=== PATIENT | female | born 1975 | race Caucasian/White ===

== ENCOUNTER 2021-04-23 10:44 | Emergency (ER) | payer SELFPAY ==
[~2021-04-23] VITALS: Ht 175.3 cm; Wt 84.1 kg
[2021-04-23 10:53] VITALS: TEMP 98.4
[2021-04-23] MEDS ORDERED: NEURONTIN600 MG/TAB PO (11:17)
[2021-04-23] MEDS ORDERED: FIORICET 325 MG1 TA1 PO (11:17)
[2021-04-23 11:42] VITALS: BP 110/78; PULSE 98
== END 2021-04-23 11:42 | disposition home or self-care (01) ==
LOC: COL.ER 10:44
DX: G43.909 Migraine, unspecified, not intractable, without status migrainosus (principal); F17.210 Nicotine dependence, cigarettes, uncomplicated
CPT/HCPCS: J0780; J1885

== ENCOUNTER 2021-05-11 08:17 | Emergency (ER) | payer SELFPAY ==
[~2021-05-11] VITALS: Ht 175.3 cm; Wt 86.4 kg
[~2021-05-11 08:17] MED LIST: FIORICET 325 MG1 TA1 PO; NEURONTIN600 MG/TAB PO
[2021-05-11 08:24] VITALS: BP 128/70; TEMP 97.1
[2021-05-11] MEDS ORDERED: NEURONTIN600 MG/TAB PO (09:16)
[2021-05-11 09:36] VITALS: PULSE 86
== END 2021-05-11 09:36 | disposition home or self-care (01) ==
LOC: COL.ER 08:17
DX: S80.02XA Contusion of left knee, initial encounter (principal); G43.909 Migraine, unspecified, not intractable, without status migrainosus; M54.9 Dorsalgia, unspecified; G89.29 Other chronic pain; Z79.899 Other long term (current) drug therapy; X50.1XXA Overexertion from prolonged static or awkward postures, initial encounter

== ENCOUNTER 2021-08-01 08:08 | Emergency (ER) | payer BC ==
[~2021-08-01] VITALS: Ht 175.3 cm; Wt 90.9 kg
[2021-08-01 08:15] VITALS: TEMP 97.8
[2021-08-01] MEDS ORDERED: FIORICET 325 MG1 TA1 PO (08:42)
[2021-08-01] MEDS ORDERED: NEURONTIN600 MG/TAB PO (08:42)
[2021-08-01 08:49] VITALS: BP 103/71; PULSE 72
[2021-10-12] MEDS ORDERED: NYSTATIN OR100 MU/ML PO (22:01)
== END 2021-08-01 08:51 | disposition home or self-care (01) ==
LOC: COL.ER 08:08
DX: M54.9 Dorsalgia, unspecified (principal); G89.29 Other chronic pain; F17.200 Nicotine dependence, unspecified, uncomplicated; Z90.710 Acquired absence of both cervix and uterus; Z79.899 Other long term (current) drug therapy

== ENCOUNTER 2021-08-10 12:49 | Emergency (ER) | payer BC ==
[~2021-08-10] VITALS: Ht 175.3 cm; Wt 86.4 kg
[2021-08-10 13:15] VITALS: BP 126/77; TEMP 98.3
[2021-08-10] MEDS ORDERED: FIORICET 325 MG1 TA1 PO ×3 (13:39→14:45)
[2021-08-10] MEDS ORDERED: LYRICA200 MG PO ×3 (13:39→14:45)
[2021-08-10 14:06] VITALS: PULSE 91
[2021-10-12] MEDS ORDERED: NYSTATIN OR100 MU/ML PO (22:01)
== END 2021-08-10 14:05 | disposition home or self-care (01) ==
LOC: COL.ER 12:49
DX: M54.16 Radiculopathy, lumbar region (principal); G43.909 Migraine, unspecified, not intractable, without status migrainosus; Z90.710 Acquired absence of both cervix and uterus; Z79.899 Other long term (current) drug therapy

== ENCOUNTER 2021-09-14 10:52 | Emergency (ER) | payer SELFPAY ==
[~2021-09-14] VITALS: Ht 175.3 cm; Wt 86.4 kg
[~2021-09-14 10:52] MED LIST changes: +LYRICA200 MG PO
[2021-09-14 11:18] VITALS: TEMP 97.5
[2021-09-14] MEDS ORDERED: LYRICA200 MG PO (12:06)
[2021-09-14] MEDS ORDERED: FIORICET 325 MG1 TA1 PO (12:06)
--- NOTE | 2021-09-14 12:29 | NUR ---
[facility] consulted for medication voucher or assistance. [facility]A staffed with nurse about patient and Dr. Patient is reported to need assistance obtaining medications for migranes and neuro concerns. Patient reports that her lost insurance for the family and cannot afford medications and does not have primary care. [facility]URA notes that patient visted the ED on 08/01/2021 for medications, 08/10/2021 for medicationa for same issue, and again today for medications. Educated patient on establishing care and using other community supports. SW provide client with packet for [employer] insurance, [facility] Resource Guide, Good RX Card, and obtain release to make a referral for PCP. Educated patient on [facility]. Placed Release on Chart along with referral for PCP for medications. CATA.
[2021-09-14 12:43] VITALS: BP 122/74; PULSE 78
[2021-10-12] MEDS ORDERED: NYSTATIN OR100 MU/ML PO (22:01)
== END 2021-09-14 12:50 | disposition home or self-care (01) ==
LOC: COL.ER 10:52
DX: M54.2 Cervicalgia (principal); R51.9 Headache, unspecified; G43.909 Migraine, unspecified, not intractable, without status migrainosus; F17.210 Nicotine dependence, cigarettes, uncomplicated; Z79.899 Other long term (current) drug therapy
CPT/HCPCS: J0780; J1885

== ENCOUNTER 2021-09-28 08:26 | Emergency (ER) | payer SELFPAY ==
[~2021-09-28] VITALS: Ht 175.3 cm; Wt 86.4 kg
[2021-09-28 08:33] VITALS: BP 133/84; PULSE 98
[2021-09-28] MEDS ORDERED: LYRICA200 MG PO ×2 (08:41)
[2021-10-12] MEDS ORDERED: NYSTATIN OR100 MU/ML PO (22:01)
== END 2021-09-28 09:24 | disposition home or self-care (01) ==
LOC: COL.ER 08:26
DX: M54.50 Low back pain, unspecified (principal); G89.29 Other chronic pain; Z87.39 Personal history of other diseases of the musculoskeletal system and connective tissue
CPT/HCPCS: J1885

== ENCOUNTER 2021-10-09 11:39 | Emergency (ER) | payer SELFPAY ==
[~2021-10-09] VITALS: Ht 175.3 cm; Wt 86.4 kg
[2021-10-09] MEDS ORDERED: FIORICET 325 MG1 TA1 PO (13:09)
[2021-10-09] MEDS ORDERED: AMOXICILLIN 8751 TAB PO (13:09)
[2021-10-09] MEDS ORDERED: FLEXERIL 1010 MG/TAB PO (13:09)
[2021-10-09 13:25] VITALS: BP 113/61; PULSE 88; TEMP 98.1
[2021-10-12] MEDS ORDERED: NYSTATIN OR100 MU/ML PO (22:01)
== END 2021-10-09 13:25 | disposition home or self-care (01) ==
LOC: COL.ER 11:39
DX: M54.2 Cervicalgia (principal); M62.838 Other muscle spasm; G43.909 Migraine, unspecified, not intractable, without status migrainosus; Z79.899 Other long term (current) drug therapy
CPT/HCPCS: J1885

== ENCOUNTER 2021-10-11 11:09 | Emergency (ER) | payer SELFPAY ==
[~2021-10-11] VITALS: Ht 175.3 cm; Wt 86.4 kg
[~2021-10-11 11:09] MED LIST changes: +AMOXICILLIN 8751 TAB PO; +FLEXERIL 1010 MG/TAB PO
[2021-10-11 11:53] VITALS: TEMP 98.1
[2021-10-11 13:56] LABS: BASO # 0.1 K/mm3 (0.0-0.2); BASO % 0.6 % (0.0-2.0); EOS # 0.4 K/mm3 (0.0-0.7); EOS % 2.4 % (0-4.0); GRAN # 11.6 K/mm3 (1.4-6.5); GRAN % 68.5 % (42.2-75.2); HEMATOCRIT 45.1 % (37.0-47.0); HEMOGLOBIN 14.7 g/dl (12.5-16.0); LYMPH # 3.9 K/mm3 (1.2-3.4); LYMPH % 22.9 % (20.0-51.0); MEAN CELL VOLUME 98 fl (80.0-100.0); MEAN CORPUSCULAR HEMOGLOBIN 32 pg (27.0-31.0); MEAN CORPUSCULAR HGB CONC 33 g/dl (33.0-37.0); MEAN PLATELET VOLUME 10.5 fl (7.4-10.4); MONO # 0.8 K/mm3 (0.1-0.6); MONO % 4.8 % (1.7-9.3); PLATELET COUNT 333 K/mm3 (130-400); RED BLOOD COUNT 4.59 M/mm3 (4.10-5.30); REDCELL DISTRIBUTION WIDTH-CV 13.4 % (11.5-14.5)
[2021-10-11 14:14] LABS: ALBUMIN 2.8 gm/dL (3.5-5.0); BILIRUBIN,TOTAL 0.2 mg/dL (0.2-1.2); C-REACTIVE PROTEIN 1.44 mg/dL (0.00-0.50); CALCIUM 8.5 mg/dL (8.4-10.2); CREATININE, serum 0.73 mg/dL (0.57-1.11); TOTAL PROTEIN 5.9 gm/dL (6.2-8.1)
[2021-10-11] MEDS ORDERED: NORCO 325 MG-7.1 TAB PO ×2 (16:46)
[2021-10-11] MEDS ORDERED: PREDNISONE20 MG PO (16:46)
[2021-10-11 17:03] VITALS: BP 108/66; PULSE 97
[2021-10-11] MEDS ORDERED: NORCO 325 MG-51 TAB PO (17:51)
[2021-10-12] MEDS ORDERED: NYSTATIN OR100 MU/ML PO (22:01)
== END 2021-10-11 17:03 | disposition home or self-care (01) ==
LOC: COL.ER 11:09
PROVIDERS: Nurse Practitioner
DX: G90.01 Carotid sinus syncope (principal); G43.909 Migraine, unspecified, not intractable, without status migrainosus; G89.29 Other chronic pain; M54.9 Dorsalgia, unspecified; Z79.899 Other long term (current) drug therapy
CPT/HCPCS: J2270; J7030; J7512; Q9967

== ENCOUNTER 2021-10-16 14:23 | Emergency (ER) | payer SELFPAY ==
[~2021-10-16] VITALS: Ht 175.3 cm; Wt 86.4 kg
[~2021-10-16 14:23] MED LIST changes: +NORCO 325 MG-51 TAB PO; +NORCO 325 MG-7.1 TAB PO; +NYSTATIN OR100 MU/ML PO; +PREDNISONE20 MG PO
[2021-10-16 14:38] VITALS: BP 118/80; PULSE 114; TEMP 98.4
[2021-10-16] MEDS ORDERED: NORCO 325 MG-51 TAB PO (15:30)
== END 2021-10-16 16:41 | disposition home or self-care (01) ==
LOC: COL.ER 14:23
DX: S92.355A Nondisplaced fracture of fifth metatarsal bone, left foot, initial encounter for closed fracture (principal); W10.8XXA Fall (on) (from) other stairs and steps, initial encounter; X50.1XXA Overexertion from prolonged static or awkward postures, initial encounter; Y93.01 Activity, walking, marching and hiking

== ENCOUNTER 2021-11-07 10:14 | Emergency (ER) | payer SELFPAY ==
[~2021-11-07] VITALS: Ht 175.3 cm; Wt 86.4 kg
[2021-11-07 10:35] VITALS: TEMP 98.3
[2021-11-07 11:30] VITALS: BP 120/61; PULSE 80
== END 2021-11-07 11:35 | disposition home or self-care (01) ==
LOC: COL.ER 10:14
DX: R51.9 Headache, unspecified (principal)

== ENCOUNTER 2021-12-08 08:55 | Emergency (ER) | payer SELFPAY ==
[~2021-12-08] VITALS: Ht 175.3 cm; Wt 90.9 kg
[2021-12-08 08:59] VITALS: BP 117/61; TEMP 97.7
[2021-12-08 10:13] VITALS: PULSE 13
== END 2021-12-08 10:14 | disposition home or self-care (01) ==
LOC: COL.ER 08:55
DX: R51.9 Headache, unspecified (principal); F17.210 Nicotine dependence, cigarettes, uncomplicated; Z86.69 Personal history of other diseases of the nervous system and sense organs; Z79.899 Other long term (current) drug therapy

== ENCOUNTER 2022-02-01 10:08 | Emergency (ER) | payer SELFPAY ==
[~2022-02-01] VITALS: Ht 175.3 cm; Wt 93.2 kg
[2022-02-01 10:17] VITALS: TEMP 98
[2022-02-01] MEDS ORDERED: PROAIR HFA0.09 MG/AC IH (12:05)
[2022-02-01] MEDS ORDERED: CHERATUSSIN AC120 ML PO (12:05)
[2022-02-01 12:45] VITALS: BP 144/97; PULSE 82
== END 2022-02-01 12:45 | disposition home or self-care (01) ==
LOC: COL.ER 10:08
DX: J04.0 Acute laryngitis (principal); J98.01 Acute bronchospasm; B34.9 Viral infection, unspecified; F17.210 Nicotine dependence, cigarettes, uncomplicated; Z20.822 Contact with and (suspected) exposure to COVID-19

== ENCOUNTER 2022-03-15 11:13 | Emergency (ER) | payer SELFPAY ==
[~2022-03-15] VITALS: Ht 175.3 cm; Wt 90.9 kg
[~2022-03-15 11:13] MED LIST changes: +CHERATUSSIN AC120 ML PO; +PROAIR HFA0.09 MG/AC IH
[2022-03-15 11:28] VITALS: PULSE 94; TEMP 97.4
[2022-03-15 12:08] VITALS: BP 125/65
[2022-03-15] MEDS ORDERED: FLEXERIL 1010 MG/TAB PO (12:47)
[2022-03-15] MEDS ORDERED: NORCO 325 MG-51 TAB PO (12:47)
== END 2022-03-15 13:03 | disposition home or self-care (01) ==
LOC: COL.ER 11:13
DX: M54.50 Low back pain, unspecified (principal); G89.29 Other chronic pain; F17.200 Nicotine dependence, unspecified, uncomplicated; Z87.39 Personal history of other diseases of the musculoskeletal system and connective tissue; Z28.310 Unvaccinated for COVID-19; X50.1XXA Overexertion from prolonged static or awkward postures, initial encounter
CPT/HCPCS: J1885; J2360

== ENCOUNTER 2022-03-26 13:00 | Emergency (ER) | payer SELFPAY ==
[~2022-03-26] VITALS: Ht 175.3 cm; Wt 97.3 kg
[2022-03-26 13:18] VITALS: TEMP 98.1
[2022-03-26] MEDS ORDERED: FLEXERIL 1010 MG/TAB PO (14:17)
[2022-03-26] MEDS ORDERED: NAPROSYN500 MG PO (14:19)
[2022-03-26 14:27] VITALS: BP 139/95; PULSE 92
== END 2022-03-26 14:27 | disposition home or self-care (01) ==
LOC: COL.ER 13:00
DX: M54.50 Low back pain, unspecified (principal); G89.29 Other chronic pain; Z28.310 Unvaccinated for COVID-19
CPT/HCPCS: J1885

== ENCOUNTER 2022-05-16 13:41 | Emergency (ER) | payer SELFPAY ==
[~2022-05-16] VITALS: Ht 175.3 cm; Wt 94.5 kg
[~2022-05-16 13:41] MED LIST changes: +NAPROSYN500 MG PO
[2022-05-16 15:05] VITALS: BP 131/67; PULSE 94
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
== END 2022-05-16 15:05 | disposition home or self-care (01) ==
LOC: COL.ER 13:41
DX: F43.9 Reaction to severe stress, unspecified (principal); Z28.310 Unvaccinated for COVID-19

== ENCOUNTER 2022-07-15 08:14 | Emergency (ER) | payer SELFPAY ==
[~2022-07-15] VITALS: Ht 175.3 cm; Wt 99.5 kg
[2022-07-15 08:37] VITALS: BP 125/79; TEMP 97.6
[2022-07-15] MEDS ORDERED: NORCO 325 MG-51 TAB PO (09:19)
[2022-07-15 09:53] VITALS: PULSE 96
== END 2022-07-15 09:53 | disposition home or self-care (01) ==
LOC: COL.ER 08:14
DX: M54.2 Cervicalgia (principal); R22.1 Localized swelling, mass and lump, neck; F17.210 Nicotine dependence, cigarettes, uncomplicated; Z28.310 Unvaccinated for COVID-19

== ENCOUNTER 2022-09-05 15:58 | Emergency (ER) | payer SELFPAY ==
[~2022-09-05] VITALS: Ht 175.3 cm; Wt 99.5 kg
[~2022-09-05 15:58] MED LIST changes: +AMOXICILLIN 50500 MG PO
[2022-09-05 16:02] VITALS: TEMP 98.1
[2022-09-05] MEDS ORDERED: NORCO 325 MG-51 TAB PO (16:47)
[2022-09-05] MEDS ORDERED: CRUTCHES MC (17:03)
[2022-09-05 17:14] VITALS: PULSE 112
== END 2022-09-05 17:14 | disposition home or self-care (01) ==
LOC: COL.ER 15:58
DX: S99.912A Unspecified injury of left ankle, initial encounter (principal); F17.210 Nicotine dependence, cigarettes, uncomplicated; Z28.310 Unvaccinated for COVID-19; W10.9XXA Fall (on) (from) unspecified stairs and steps, initial encounter; X50.1XXA Overexertion from prolonged static or awkward postures, initial encounter; Y93.01 Activity, walking, marching and hiking

== ENCOUNTER 2022-12-31 09:38 | Emergency (ER) | payer SELFPAY ==
[~2022-12-31] VITALS: Ht 175.3 cm; Wt 100.0 kg
[~2022-12-31 09:38] MED LIST changes: +CRUTCHES MC
[2022-12-31 09:54] VITALS: BP 115/67; TEMP 97.9
[2022-12-31] MEDS ORDERED: NORCO 325 MG-51 TAB PO (10:31)
[2022-12-31] MEDS ORDERED: AMOXICILLIN 50500 MG PO (10:31)
[2022-12-31 11:07] VITALS: PULSE 86
== END 2022-12-31 11:07 | disposition home or self-care (01) ==
LOC: COL.ER 09:38
DX: G47.63 Sleep related bruxism (principal); F17.210 Nicotine dependence, cigarettes, uncomplicated

== ENCOUNTER 2023-03-05 05:27 | Emergency (ER) | payer BC ==
[~2023-03-05] VITALS: Ht 175.3 cm; Wt 97.7 kg
[2023-03-05 05:40] VITALS: TEMP 98
[2023-03-05 06:55] LABS: COLLECTION METHOD CLEAN CATCH
[2023-03-05 07:00] LABS: SQUAMOUS EPITHELIAL 0-2 /hpf (0-10); URINE APPEARANCE Clear (CLEAR/HAZY); URINE BACTERIA Rare /hpf (NONE SEEN); URINE BLOOD Negative (NEGATIVE); URINE COLOR Yellow (YELLOW); URINE GLUCOSE Negative (NEGATIVE); URINE KETONE Negative (NEGATIVE); URINE NITRATE Negative (NEGATIVE); URINE PROTEIN(semi-quant) Negative (NEGATIVE); URINE RBC 0-2 /hpf (0-2); URINE UROBILINOGEN 0.2 E.U/dL (0.2-1.0)
[2023-03-05] MEDS ORDERED: FIORICET 325 MG1 TA1 PO (07:22)
[2023-03-05 07:36] VITALS: BP 119/74; PULSE 79
== END 2023-03-05 07:36 | disposition home or self-care (01) ==
LOC: COL.ER 05:27
PROVIDERS: Family Medicine
DX: G43.909 Migraine, unspecified, not intractable, without status migrainosus (principal); M54.50 Low back pain, unspecified; Z87.891 Personal history of nicotine dependence; Z28.310 Unvaccinated for COVID-19
CPT/HCPCS: J0780; J1100; J1200; J1885; J7030

== ENCOUNTER 2023-11-25 12:06 | Emergency (ER) | payer BC ==
[~2023-11-25] VITALS: Ht 175.3 cm; Wt 86.4 kg
[~2023-11-25 12:06] MED LIST changes: +BENTYL 20MG20 MG/TAB PO; +ZITHROMAX500 M2 PO
[2023-11-25 12:11] VITALS: BP 111/64; TEMP 98.5
[2023-11-25 14:09] VITALS: PULSE 70
== END 2023-11-25 14:09 | disposition home or self-care (01) ==
LOC: COL.ER 12:06
DX: S06.0X0A Concussion without loss of consciousness, initial encounter (principal); S16.1XXA Strain of muscle, fascia and tendon at neck level, initial encounter; F17.210 Nicotine dependence, cigarettes, uncomplicated; W01.198A Fall on same level from slipping, tripping and stumbling with subsequent striking against other object, initial encounter

== ENCOUNTER 2023-12-04 10:32 | Emergency (ER) | payer BC ==
[~2023-12-04] VITALS: Ht 175.3 cm; Wt 86.4 kg
[2023-12-04] MEDS ORDERED: CLEOCIN HCL300 MG PO (10:57)
[2023-12-04 11:10] VITALS: BP 97/58; PULSE 74; TEMP 98.6
== END 2023-12-04 11:13 | disposition home or self-care (01) ==
LOC: COL.ER 10:32
DX: K08.89 Other specified disorders of teeth and supporting structures (principal)

== ENCOUNTER 2024-02-19 17:33 | Emergency (ER) | payer SELFPAY ==
[~2024-02-19] VITALS: Ht 175.3 cm; Wt 86.4 kg
[~2024-02-19 17:33] MED LIST changes: +CLEOCIN HCL300 MG PO
[2024-02-19 17:40] VITALS: TEMP 98.3
[2024-02-19] MEDS ORDERED: Home HYDROcodone/Acetaminophen 5/325 MG #4 TABS/PACK PO ONE (18:30)
[2024-02-19 18:38] VITALS: BP 111/77; PULSE 79
== END 2024-02-19 18:39 | disposition home or self-care (01) ==
LOC: COL.ER 17:33
DX: K08.89 Other specified disorders of teeth and supporting structures (principal); F17.200 Nicotine dependence, unspecified, uncomplicated

== ENCOUNTER 2024-08-26 11:11 | Emergency (ER) | payer SELFPAY ==
[2024-08-26 11:17] VITALS: TEMP 97.5
[2024-08-26] MEDS ORDERED: NORCO 325 MG-51 TAB PO (12:12)
[2024-08-26] MEDS ORDERED: AMOXICILLIN 50500 MG PO (12:12)
[2024-08-26 12:25] VITALS: BP 124/82; PULSE 70
== END 2024-08-26 12:25 | disposition home or self-care (01) ==
LOC: COL.ER 11:11
DX: R68.84 Jaw pain (principal); F17.200 Nicotine dependence, unspecified, uncomplicated; Z98.818 Other dental procedure status